=== PATIENT | male | born 1965 | race Caucasian/White ===

== ENCOUNTER 2020-02-24 16:28 | Emergency (ER) | payer MEDICARE, OTHER ==
--- NOTE | 2020-02-24 16:43 | ED ---
General Adult HPI - General Stated complaint: altered Time Seen by Provider: 02/24/20 16:31 Source: patient, EMS, RN notes reviewed, old records reviewed - History of Present Illness Initial comments: 54-year-old male brought in for psychiatric evaluation. Patient apparently had had an episode where he was agitated, thought to be manic, he was given his dose of Ativan and paramedics were called for transport to the hospital. The patient has history of paranoid schizophrenia as well as alcohol induced dementia. He is currently staying at a [facility] facility. He is on Seroquel, Ativan, Risperdal. Patient self does not have any complaints. He is following commands, easily redirected, he has been cooperative with EMS during transport and is cooperative at the time my evaluation. - Related Data Home Medications Medication Instructions Recorded Confirmed Aspirin 81 mg PO DAILY@0700 02/24/20 02/24/20 Allergies Allergy/AdvReac Type Severity Reaction Status Date / Time No Known Allergies Allergy Verified 02/24/20 17:17 Review of Systems ROS Statement: Those systems with pertinent positive or pertinent negative responses have been documented in the HPI. ROS Other: All systems not noted in ROS Statement are negative. Past Medical History Past Medical History: No Reported History History of Any Multi-Drug Resistant Organisms: None Reported Past Surgical History: No Surgical Hx Reported Past Psychological History: No Psychological Hx Reported Past Alcohol Use History: Rare Past Drug Use History: Marijuana General Exam General appearance: alert, in no apparent distress Head exam: Present: atraumatic, normocephalic Eye exam: Present: normal appearance, PERRL ENT exam: Present: mucous membranes moist Neck exam: Present: normal inspection. Absent: tenderness, meningismus Respiratory exam: Present: normal lung sounds bilaterally. Absent: respiratory distress, wheezes Cardiovascular Exam: Present: regular rate, normal rhythm GI/Abdominal exam: Present: soft. Absent: distended, tenderness, guarding, rebound Extremities exam: Present: normal inspection, normal capillary refill. Absent: pedal edema Neurological exam: Present: alert. Absent: oriented X3 Psychiatric exam: Present: flat affect Skin exam: Present: warm, dry, intact. Absent: cyanosis, diaphoretic Course Vital Signs 02/24/20 16:31 Temperature 98 F Pulse Rate 80 Respiratory 18 Rate Blood Pressure 132/97 O2 Sat by Pulse 100 Oximetry Medical Decision Making - Medical Decision Making 54 had presented with some agitation from the [facility] facility where he resides. He is a known schizophrenic with additional diagnosis of alcohol induced dementia. Patient was medically cleared. He is at his baseline. He is very cooperative throughout his stay in the emergency department. EPS nurse is able to contact his guardian, the facility where he resides and the psychiatrist online merchandising specialist regarding this patient's care. All parties agree that the patient can be discharged back to the [facility] where he resides. Medication adjustments will be made as needed. - Lab Data Lab Results 02/24/20 Range/Units 16:51 POC Glucose (mg/dL) 91 (75-99) mg/dL POC Glu Gill Net Stringer ID Irvin Merrill Disposition Clinical Impression: Schizophrenia, Alcoholic dementia Disposition: OTHER INSTITUTION NOT DEFINED Condition: Fair Instructions (If sedation given, give patient instructions): Dementia (ED), Schizophrenia (ED) Is patient prescribed a controlled substance at d/c from ED?: No Referrals: Fco Bentley MD [Primary Care Provider] - 1-2 days Time of Disposition: 17:21 - Out of Hospital Transfer - Req. Specs Out of Hospital Transfer - Requested Specifics: Other Non-Acute ([facility])
[2020-02-24 16:47] VITALS: BP 132/97; PULSE 80; RESP 18; TEMP 98
[2020-02-24 16:52] LABS: Glucose,Whole Blood 91 mg/dL (75-99)
[2020-02-24] MEDS ORDERED: LORazepam 2 MG/ML INJ IM STA (16:56)
== END 2020-02-24 17:54 | disposition other institution (70) ==
LOC: EC 16:28
DX: F20.9 Schizophrenia, unspecified (principal); F41.9 Anxiety disorder, unspecified; F10.97 Alcohol use, unspecified with alcohol-induced persisting dementia; Y90.9 Presence of alcohol in blood, level not specified; Z79.899 Other long term (current) drug therapy
CPT/HCPCS: 82075; 36415; 96372; 99285; J2060

== ENCOUNTER 2021-01-29 19:24 | Emergency (ER) | payer MEDICARE, OTHER ==
[2021-01-29 19:43] VITALS: RESP 22; TEMP 98.2
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
[2021-01-29 21:38] LABS: HCT 42.7 % (39.0-53.0); HGB 14.7 gm/dL (13.0-17.5); MCH 35.3 pg (25.0-35.0); MCV 102.7 fL (80.0-100.0); RBC 4.16 m/uL (4.30-5.90); WBC 10.9 k/uL (3.8-10.6)
[2021-01-29 21:39] LABS: Basophils % (A) 0 %; Eosinophils # (A) 0.1 k/uL (0-0.7); Eosinophils % (A) 1 %; Lymphocytes # (A) 1.6 k/uL (1.0-4.8); Lymphocytes % (A) 15 %; MCHC 34.4 g/dL (31.0-37.0); Macrocytosis Slight; Mean Platelet Volume 7.9; Monocytes # (A) 0.6 k/uL (0-1.0); Monocytes % (A) 6 %; Neutrophils # (A) 8.5 k/uL (1.3-7.7); Neutrophils % (A) 78 %; Platelet Count 92 k/uL (150-450); RDW 13.2 % (11.5-15.5)
[2021-01-29 21:48] LABS: ALT 19 U/L (4-49); AST 32 U/L (17-59); African American GFR (CKD) >90 (>60 ml/min/1.73 sqM); Albumin 3.2 g/dL (3.5-5.0); Alcohol <10 mg/dL; Alkaline Phosphatase 68 U/L (38-126); Anion Gap 5 mmol/L; Blood Urea Nitrogen 21 mg/dL (9-20); Calcium 8.1 mg/dL (8.4-10.2); Carbon Dioxide 26 mmol/L (22-30); Chloride 104 mmol/L (98-107); Glucose 100 mg/dL (74-99); Non-African American GFR(CKD) >90 (>60 ml/min/1.73 sqM); Potassium 4.1 mmol/L (3.5-5.1); Sodium 135 mmol/L (137-145); Total Bilirubin 0.4 mg/dL (0.2-1.3)
[2021-01-30 03:10] VITALS: BP 124/86; PULSE 74
== END 2021-01-30 03:05 | disposition home or self-care (01) ==
LOC: EC 19:24 → EEVIPCON 19:24 → EC 01-30 03:05
DX: F39 Unspecified mood [affective] disorder (principal)
CPT/HCPCS: 36415; 80053; 85025; 99285; G0480; 80320